=== PATIENT | female | born 1975 | race Caucasian/White ===

== ENCOUNTER 2019-01-09 22:17 | Emergency (ER) | payer BC ==
[2019-01-09 22:21] VITALS: BP 123/61; PULSE 67; TEMP 97.4; BMI 31.6
--- NOTE | 2019-01-09 23:01 | PDOC ---
History of Present Illness - General Chief Complaint: Shortness of Breath Stated Complaint: S.O.B/ASTHMA - History of Present Illness Initial Comments: The patient is a 43F w/ a history of asthma, hypothyroidism, and idiopathic intracranial hypertension who presents for evaluation of 1 month of cough, congestion, wheezing, generalized myalgias, and malaise. She has been using her inhaler at home with minimal symptom relief. She also reports intermittent associated nausea and lightheadedness. Denies fevers/chills, HORTON, vision changes, chest pain, abdominal pain, V/C/D, dysuria, hematuria, or changes in strength or sensation 01/09/19 23:13 Past History - Past Medical History Allergies/Adverse Reactions: Allergies Allergy/AdvReac Type Severity Reaction Status Date / Time No Known Drug Allergies Allergy Verified 01/09/19 22:21 Home Medications: Ambulatory Orders Albuterol Sulfate Inhaler - [Ventolin HFA Inhaler -] 2 inh IH Q4H PRN #1 inh 07/13 Levothyroxine [Synthroid -] 150 mcg PO DAILY 04/07/13 Fluticasone/Salmeterol [Advair Hfa 115-21 Mcg Inhaler] 1 inh PO BID #1 inhaler 04/27/13 acetaZOLAMIDE [Diamox Sequels -] 500 mg PO BID 08/19/13 Nitrofurantoin Macrocrystal [Macrodantin -] 100 mg PO BID #14 capsule 09/06/16 Prednisone [Deltasone] 40 mg PO DAILY 4 Days #8 tablet 01/10/19 Asthma: Yes COPD: No Thyroid Disease: Yes (hypothyroid) - Suicide/Smoking/Psychosocial Hx Smoking Status: No Smoking History: Never smoked Have you smoked in the past 12 months: No Number of Cigarettes Smoked Daily: 0 Hx Alcohol Use: No Drug/Substance Use Hx: No Substance Use Type: None Review of Systems - Review of Systems Able to Perform ROS?: Yes Comments:: GENERAL/CONSTITUTIONAL: No fever or chills. No weakness HEAD, EYES, EARS, NOSE AND THROAT: No change in vision. No ear pain or discharge. No sore throat CARDIOVASCULAR: No chest pain or shortness of breath RESPIRATORY: Denies hemoptysis GASTROINTESTINAL: No vomiting, diarrhea or constipation GENITOURINARY: No dysuria, frequency, or change in urination MUSCULOSKELETAL: No joint or muscle swelling or pain. No neck or back pain SKIN: No rash NEUROLOGIC: No headache, vertigo, loss of consciousness, or change in strength/ sensation ENDOCRINE: No increased thirst. No abnormal weight change HEMATOLOGIC/LYMPHATIC: No anemia, easy bleeding, or history of blood clots ALLERGIC/IMMUNOLOGIC: No hives or skin allergy 01/09/19 23:01 Is the patient limited [place] proficient: No *Physical Exam - Vital Signs Last Vital Signs Temp Pulse Resp BP Pulse Ox 97.4 F L 67 20 123/61 100 01/09/19 22:19 01/09/19 22:19 01/09/19 22:19 01/09/19 22:19 01/09/19 22:19 - Physical Exam Comments: GENERAL: Awake, alert, and fully oriented, in no acute distress HEAD: No signs of trauma, normocephalic, atraumatic EYES: PERRLA, EOMI, sclera anicteric, conjunctiva clear ENT: Hearing grossly normal, nares patent, oropharynx clear without exudates. Moist mucosa LUNGS: No distress, speaks full sentences, mild b/l wheezes L>R HEART: Regular rate and rhythm, normal S1 and S2, no murmurs appreciated, peripheral pulses normal and equal bilaterally ABDOMEN: Soft, nontender, normoactive bowel sounds. No guarding, no rebound. No masses EXTREMITIES : Normal inspection, Normal range of motion, no edema. No clubbing or cyanosis NEUROLOGICAL: Cranial nerves II through XII grossly intact. Normal speech, normal gait, no focal sensorimotor deficits SKIN: Warm, Dry 01/09/19 23:01 Moderate Sedation - Procedure Monitoring Vital Signs: Procedure Monitoring Vital Signs Temperature 97.4 F L 01/09/19 22:19 Pulse Rate 67 01/09/19 22:19 Respiratory Rate 20 01/09/19 22:19 Blood Pressure 123/61 01/09/19 22:19 O2 Sat by Pulse Oximetry (%) 100 01/09/19 22:19 Medical Decision Making - Medical Decision Making The patient is a 43F w/ a history of asthma, idiopathic intracranial hypertension, and hypothyroidism who presents for evaluation of 1m of URI symptoms/wheezing. ED Course Rapid flu CXR Duo-nebs x3 Prednisone 60mg PO once 01/09/19 23:18 Flu negative 01/09/19 23:48 U preg neg CXR pending 01/10/19 00:33 CXR w/o evidence of PNA Rx for Prednisone 40mg PO daily for 4 days Plan for D/C w/ PCP f/u Discharge instructions and return precautions given Patient in agreement and verbalized understanding Dispo: home 01/10/19 01:24 *DC/Admit/Observation/Transfer Diagnosis at time of Disposition: Asthma exacerbation Qualifiers: Asthma severity: mild Asthma persistence: unspecified Qualified Code(s): J45.901 - Unspecified asthma with (acute) exacerbation - Discharge Dispostion Disposition: HOME Condition at time of disposition: Improved Decision to Admit order: No - Prescriptions Prescriptions: Prednisone [Deltasone] 40 mg PO DAILY 4 Days #8 tablet - Referrals - Patient Instructions Printed Discharge Instructions: DI for Asthma -- Adult Additional Instructions: You were seen in the Emergency Department for evaluation of an asthma exacerbation. You were given duo-nebs and steroids. A prescription for Prednisone 40mg daily for 4 days was sent to the pharmacy that you specified. Follow up with your primary care provider within the next 3-5 days. Return to the Emergency Department if you develop fevers, trouble breathing, worsening symptoms, or any new/concerning symptoms. - Post Discharge Activity
[2019-01-09] MEDS ORDERED: ALBUTEROL SO4 2.5/IPRATROPIUM 0.5 INH SOL 3 ML VIAL.NEB. NEB ONE (23:22)
[2019-01-09] MEDS: ALBUTEROL SO4 2.5/IPRATROPIUM 0.5 INH SOL 3 ML VIAL.NEB. NEB SCH ×2 (23:26→23:43)
--- NOTE | 2019-01-09 23:50 | PDOC ---
Attending Attestation - Resident Resident Name: KingMicheal reinoso - ED Attending Attestation I have performed the following: I have examined & evaluated the patient, The case was reviewed & discussed with the resident, I agree w/resident's findings & plan, Exceptions are as noted - HPI HPI: 01/10/19 00:52 43y F hx of asthma presents with cough for th epast month as well as - Physicial Exam PE: 01/10/19 00:52 General: well appearing in no distress Pulm: scatered wheezing b/l, no respiratory distress, speaking complete sentences, no accessory muscle use card: no mrg - Medical Decision Making 01/09/19 23:49 43y F hx of asthma, IIH, hypothyodisim presents with 1month of myalgias, wheezing, chest pain with coughing not improved with her inhaler use denies fever/chills, endorses nauesa w/o vomiting, diarrhea
[2019-01-09] MEDS ORDERED: predniSONE 20 MG TABLET (UD) PO ONE (23:57)
[2019-01-10] MEDS ORDERED: predniSONE 20 MG TABLET (UD) ONE (00:02)
[2019-01-10] MEDS: ALBUTEROL SO4 2.5/IPRATROPIUM 0.5 INH SOL 3 ML VIAL.NEB. NEB SCH (00:07)
== END 2019-01-10 01:37 | disposition home or self-care (01) ==
LOC: JER 22:17
PROC: 3E0F7GC Introduction of Other Therapeutic Substance into Respiratory Tract, Via Natural or Artificial Opening (ICD-10-PCS; principal; 2019-01-09)
DX: J45.901 Unspecified asthma with (acute) exacerbation (principal); E03.9 Hypothyroidism, unspecified; G93.2 Benign intracranial hypertension
CPT/HCPCS: 71046-TC-FY; 84703; 87804; 99283-25

== ENCOUNTER 2021-04-01 04:29 | Observation (INO) | payer BC ==
[2021-04-01] MEDS ORDERED: ACETAMINOPHEN 500 MG TABLET (FP) PO ONE (05:15)
[2021-04-01] MEDS ORDERED: ACETAMINOPHEN 325 MG TABLET (FP) ONE (05:17)
[2021-04-01] MEDS ORDERED: ACETAMINOPHEN 500 MG TABLET (FP) ONE (05:19)
[2021-04-01] MEDS ORDERED: diazePAM 5 MG TABLET PO ONE (05:21)
[2021-04-01] MEDS ORDERED: KETOROLAC TROMETHAMINE 60 MG/2 ML VIAL IM ONE (05:21)
[2021-04-01] MEDS ORDERED: LIDOCAINE 5% TOPICAL PATCH TP ONE ×2 (05:21→12:55)
[2021-04-01] MEDS ORDERED: diazePAM 5 MG TABLET ONE (05:25)
[2021-04-01] MEDS ORDERED: KETOROLAC TROMETHAMINE 60 MG/2 ML VIAL ONE (05:25)
[2021-04-01] MEDS ORDERED: LIDOCAINE 5% TOPICAL PATCH ONE (05:26)
[2021-04-01] MEDS ORDERED: GABAPENTIN 100 MG CAPSULE PO ONE (06:37)
[2021-04-01] MEDS ORDERED: GABAPENTIN 100 MG CAPSULE ONE (06:39)
[2021-04-01] MEDS ORDERED: morphine CARPU-JECT 4 MG/1 ML DISP.SYRIN IVPUSH ONE ×2 (08:58→12:55)
[2021-04-01] MEDS ORDERED: MORPHINE SULFATE 2 MG/ML VIAL ONE ×2 (09:03→12:50)
[2021-04-01 10:23] LABS: BASO % 0.5 % (0-2.0); EOS % 1.3 % (0-4.5); HEMATOCRIT 36.4 % (32.4-45.2); HEMOGLOBIN 12.2 GM/dL (10.7-15.3); LYMPH % 37.7 % (8-40); MCH 27.3 pg (25.7-33.7); MCHC 33.5 g/dl (32.0-36.0); MEAN CELL VOLUME 81.6 fl (80-96); MEAN PLT VOLUME 9.4 fl (7.5-11.1); NEUT % 54.5 % (42.8-82.8); PLATELET COUNT 219 K/MM3 (134-434); RBC 4.45 M/mm3 (3.60-5.2); WHITE BLOOD COUNT 7.5 K/mm3 (4.0-10.0)
[2021-04-01 10:31] LABS: PROTHROMBIN TIME (PATIENT) 12.3 SEC (9.7-13.0)
[2021-04-01 10:46] LABS: ALBUMIN 3.5 g/dl (3.4-5.0); BLOOD UREA NITROGEN 15.9 mg/dL (7-18); CALCIUM 8.5 mg/dL (8.5-10.1)
[2021-04-01 10:49] LABS: CREATININE 0.8 mg/dL (0.55-1.3)
[2021-04-01 10:50] LABS: BILIRUBIN,TOTAL 0.7 mg/dL (0.2-1); TOT PROT 7.5 g/dl (6.4-8.2)
[2021-04-01 18:15] VITALS: BMI 35.6
[2021-04-01] MEDS ORDERED: morphine SULFATE 4 MG/ML VIAL IVPUSH ONE (20:18)
[2021-04-01] MEDS ORDERED: LIDOCAINE PATCH REMOVAL MC SCH ×2 (22:00)
[2021-04-02] MEDS ORDERED: morphine SULFATE 4 MG/ML VIAL IVPUSH PRN (02:26)
[2021-04-02] MEDS ORDERED: oxyCODONE HCL 5 MG TABLET PO PRN ×2 (02:26→14:08)
[2021-04-02] MEDS: LEVOTHYROXINE NA 125 MCG TABLET (FP) PO SCH (05:59)
[2021-04-02] MEDS ORDERED: GABAPENTIN 100 MG CAPSULE PO SCH (07:30)
[2021-04-02] MEDS: ENOXAPARIN NA (PORCINE) 40 MG/0.4 ML DISP.SYRIN SQ SCH (09:16)
[2021-04-02] MEDS ORDERED: ACETAMINOPHEN 325 MG TABLET (FP) PO PRN (10:15)
[2021-04-02] MEDS: LIDOCAINE 5% TOPICAL PATCH TP SCH (10:43)
[2021-04-02] MEDS: oxyCODONE HCL 5 MG TABLET PO PRN ×2 (10:43→23:09)
[2021-04-02] MEDS ORDERED: morphine SULFATE 4 MG/ML VIAL IVPUSH ONE (13:08)
[2021-04-02] MEDS ORDERED: SODIUM CHLORIDE 0.9% 500 ML INFUS.BAG IV ONE (13:18)
[2021-04-02] MEDS ORDERED: ALBUTEROL SO4 HFA INHALER IH PRN (14:56)
[2021-04-02] MEDS: ACETAMINOPHEN 325 MG TABLET (FP) PO PRN ×2 (17:41→23:08)
[2021-04-02] MEDS: LIDOCAINE PATCH REMOVAL MC SCH (23:15)
[2021-04-03] MEDS: LEVOTHYROXINE NA 125 MCG TABLET (FP) PO SCH (06:18)
[2021-04-03 08:02] LABS: BASO % 0.5 % (0-2.0); EOS % 2.1 % (0-4.5); HEMOGLOBIN 12.3 GM/dL (10.7-15.3); LYMPH % 47.5 % (8-40); MCH 27.4 pg (25.7-33.7); MCHC 33.2 g/dl (32.0-36.0); MEAN CELL VOLUME 82.6 fl (80-96); MEAN PLT VOLUME 9.8 fl (7.5-11.1); MONO % 9.1 % (3.8-10.2); NEUT % 40.8 % (42.8-82.8); PLATELET COUNT 213 K/MM3 (134-434); RBC 4.48 M/mm3 (3.60-5.2); RDW 15.2 % (11.6-15.6); WHITE BLOOD COUNT 5.3 K/mm3 (4.0-10.0)
[2021-04-03 08:37] LABS: ALBUMIN 2.9 g/dl (3.4-5.0); CALCIUM 7.9 mg/dL (8.5-10.1)
[2021-04-03 08:38] LABS: BLOOD UREA NITROGEN 14.5 mg/dL (7-18); MAGNESIUM 2.1 mg/dL (1.8-2.4)
[2021-04-03 08:41] LABS: CREATININE 0.8 mg/dL (0.55-1.3)
[2021-04-03 08:42] LABS: BILIRUBIN,TOTAL 0.6 mg/dL (0.2-1); TOT PROT 6.9 g/dl (6.4-8.2)
[2021-04-03] MEDS: ACETAMINOPHEN 325 MG TABLET (FP) PO PRN ×2 (09:29→16:02)
[2021-04-03] MEDS: oxyCODONE HCL 5 MG TABLET PO PRN ×3 (09:30→23:59)
[2021-04-03] MEDS: LIDOCAINE 5% TOPICAL PATCH TP SCH (10:58)
[2021-04-03] MEDS: ENOXAPARIN NA (PORCINE) 40 MG/0.4 ML DISP.SYRIN SQ SCH (11:45)
[2021-04-03] MEDS ORDERED: POLYETHYLENE GLYCOL 3350 119 GM BTL PO ONE (14:00)
[2021-04-03] MEDS: LIDOCAINE PATCH REMOVAL MC SCH (21:14)
[2021-04-04] MEDS: LEVOTHYROXINE NA 125 MCG TABLET (FP) PO SCH (06:04)
[2021-04-04 07:56] LABS: BASO % 0.4 % (0-2.0); HEMATOCRIT 37.6 % (32.4-45.2); HEMOGLOBIN 12.3 GM/dL (10.7-15.3); LYMPH % 43.5 % (8-40); MCH 27.3 pg (25.7-33.7); MCHC 32.8 g/dl (32.0-36.0); MEAN CELL VOLUME 83.1 fl (80-96); MEAN PLT VOLUME 10.3 fl (7.5-11.1); MONO % 7.1 % (3.8-10.2); PLATELET COUNT 237 K/MM3 (134-434); RBC 4.53 M/mm3 (3.60-5.2); RDW 14.9 % (11.6-15.6); WHITE BLOOD COUNT 6.9 K/mm3 (4.0-10.0)
[2021-04-04 08:37] LABS: CALCIUM 8.4 mg/dL (8.5-10.1)
[2021-04-04 08:38] LABS: ALBUMIN 3.5 g/dl (3.4-5.0); BILIRUBIN,TOTAL 0.4 mg/dL (0.2-1); MAGNESIUM 2.1 mg/dL (1.8-2.4)
[2021-04-04 08:39] LABS: TOT PROT 7.5 g/dl (6.4-8.2)
[2021-04-04 08:40] LABS: CREATININE 0.8 mg/dL (0.55-1.3)
[2021-04-04 08:41] LABS: PHOSPHOROUS 3.7 mg/dL (2.5-4.9)
[2021-04-04] MEDS: LIDOCAINE 5% TOPICAL PATCH TP SCH (09:02)
[2021-04-04] MEDS: oxyCODONE HCL 5 MG TABLET PO PRN (09:03)
[2021-04-04] MEDS: ENOXAPARIN NA (PORCINE) 40 MG/0.4 ML DISP.SYRIN SQ SCH (09:03)
[2021-04-04] MEDS ORDERED: oxyCODONE HCL 5 MG TABLET PO PRN ×2 (18:54)
[2021-04-04] MEDS: CYCLOBENZAPRINE HCL 10 MG TABLET (FP) PO SCH (21:37)
[2021-04-04] MEDS: KETOROLAC TROMETHAMINE 30 MG/1 ML VIAL IM PRN (21:37)
[2021-04-04] MEDS: LIDOCAINE PATCH REMOVAL MC SCH (22:31)
[2021-04-05] MEDS: LEVOTHYROXINE NA 125 MCG TABLET (FP) PO SCH (06:03)
[2021-04-05] MEDS: CYCLOBENZAPRINE HCL 10 MG TABLET (FP) PO SCH ×3 (06:03→21:01)
[2021-04-05 07:30] LABS: BASO % 0.7 % (0-2.0); EOS % 1.8 % (0-4.5); HEMATOCRIT 35.9 % (32.4-45.2); LYMPH % 38.4 % (8-40); MCH 27.6 pg (25.7-33.7); MCHC 33.3 g/dl (32.0-36.0); MEAN CELL VOLUME 82.9 fl (80-96); MEAN PLT VOLUME 9.7 fl (7.5-11.1); MONO % 8.8 % (3.8-10.2); NEUT % 50.3 % (42.8-82.8); PLATELET COUNT 217 K/MM3 (134-434); RBC 4.33 M/mm3 (3.60-5.2); RDW 15.1 % (11.6-15.6); WHITE BLOOD COUNT 6.2 K/mm3 (4.0-10.0)
[2021-04-05 07:48] LABS: ALBUMIN 3.2 g/dl (3.4-5.0); CALCIUM 8.6 mg/dL (8.5-10.1)
[2021-04-05 07:49] LABS: BLOOD UREA NITROGEN 17.6 mg/dL (7-18)
[2021-04-05 07:52] LABS: CREATININE 0.8 mg/dL (0.55-1.3); PHOSPHOROUS 3.6 mg/dL (2.5-4.9)
[2021-04-05 07:53] LABS: BILIRUBIN,TOTAL 0.5 mg/dL (0.2-1); TOT PROT 7.1 g/dl (6.4-8.2)
[2021-04-05] MEDS: LIDOCAINE 5% TOPICAL PATCH TP SCH (09:19)
[2021-04-05] MEDS: ENOXAPARIN NA (PORCINE) 40 MG/0.4 ML DISP.SYRIN SQ SCH (09:19)
[2021-04-05] MEDS ORDERED: THIAMINE HCL 200 MG/2 ML VIAL IVPB ONE ×2 (18:44→18:45)
[2021-04-05] MEDS: LIDOCAINE PATCH REMOVAL MC SCH (21:01)
[2021-04-06] MEDS: KETOROLAC TROMETHAMINE 30 MG/1 ML VIAL IM PRN (00:15)
[2021-04-06] MEDS: ACETAMINOPHEN 325 MG TABLET (FP) PO PRN (00:54)
[2021-04-06] MEDS: LEVOTHYROXINE NA 125 MCG TABLET (FP) PO SCH (06:31)
[2021-04-06] MEDS: CYCLOBENZAPRINE HCL 10 MG TABLET (FP) PO SCH (06:31)
[2021-04-06] MEDS: LIDOCAINE 5% TOPICAL PATCH TP SCH (09:12)
[2021-04-06] MEDS: ENOXAPARIN NA (PORCINE) 40 MG/0.4 ML DISP.SYRIN SQ SCH (09:12)
[2021-04-06 13:24] VITALS: TEMP 98
[2021-04-06 14:00] VITALS: BP 125/73; PULSE 79
== END 2021-04-06 14:47 | disposition short-term general hospital (02) ==
LOC: JER 04:29 → JERBED 12:42 → J7W 16:44
PROVIDERS: ADMIT Internal Medicine; ATTEND Internal Medicine
PROC: 3E023GC Introduction of Other Therapeutic Substance into Muscle, Percutaneous Approach (ICD-10-PCS; principal; 2021-04-01)
PROC: 3E0233Z Introduction of Anti-inflammatory into Muscle, Percutaneous Approach (ICD-10-PCS; 2021-04-01)
PROC: 3E033NZ Introduction of Analgesics, Hypnotics, Sedatives into Peripheral Vein, Percutaneous Approach (ICD-10-PCS; 2021-04-01)
DX: M51.9 Unspecified thoracic, thoracolumbar and lumbosacral intervertebral disc disorder (principal); M54.16 Radiculopathy, lumbar region; R20.8 Other disturbances of skin sensation; J45.909 Unspecified asthma, uncomplicated; E03.9 Hypothyroidism, unspecified; E66.8 Other obesity; Z68.35 Body mass index [BMI] 35.0-35.9, adult; G89.29 Other chronic pain; R20.2 Paresthesia of skin; R20.0 Anesthesia of skin; M79.605 Pain in left leg; M79.652 Pain in left thigh; M51.26 Other intervertebral disc displacement, lumbar region; Z87.898 Personal history of other specified conditions; Z29.9 Encounter for prophylactic measures, unspecified
CPT/HCPCS: 36415; 72131-TC; 72148-TC; 80053; 80307; 83735; 84100; 84703; 85025; 85610; 85730; 86850; 86900; 86901; 93005; 93010; 97116-GP; 97161-GP; 99285-25; C9803; G0378; U0003; U0005

== ENCOUNTER 2021-11-22 19:58 | Emergency (ER) | payer BC ==
[2021-11-22 20:18] VITALS: BP 111/70; PULSE 83; TEMP 98; BMI 35.7
[2021-11-22] MEDS ORDERED: ALBUTEROL SO4 HFA INHALER IH ONE ×2 (22:08→22:11)
== END 2021-11-22 22:22 | disposition home or self-care (01) ==
LOC: JER 19:58
PROC: 3E0F7GC Introduction of Other Therapeutic Substance into Respiratory Tract, Via Natural or Artificial Opening (ICD-10-PCS; principal; 2021-11-22)
DX: R05.9 Cough, unspecified (principal)
CPT/HCPCS: 71046-TC-FY; 87804; 87807; 99284-25; C9803; U0003; U0005

== ENCOUNTER 2023-02-13 15:00 | Emergency (ER) | payer BC ==
[2023-02-13 15:27] VITALS: BP 121/61; PULSE 68; RESP 20; TEMP 98.2; BMI 33.3
[2023-02-13 17:05] LABS: BASO % 0.7 % (0-2.0); EOS % 0.4 % (0-4.5); HEMATOCRIT 40.8 % (32.4-45.2); HEMOGLOBIN 13.3 GM/dL (10.7-15.3); LYMPH % 44.7 % (8-40); MCH 26.5 pg (25.7-33.7); MCHC 32.6 g/dl (32.0-36.0); MEAN CELL VOLUME 81.4 fl (80-96); MEAN PLT VOLUME 9.5 fl (7.5-11.1); MONO % 7.9 % (3.8-10.2); NEUT % 46.3 % (42.8-82.8); PLATELET COUNT 238 10^3/uL (134-434); RBC 5.01 M/mm3 (3.60-5.2); RDW 13.9 % (11.6-15.6); WHITE BLOOD COUNT 8.3 K/mm3 (4.0-10.0)
[2023-02-13 17:20] LABS: ACTIVATED PTT 27.1 SECONDS (25.2-36.5); INR 0.97 (0.83-1.09); PROTHROMBIN TIME (PATIENT) 11.3 SEC (9.7-13.0)
[2023-02-13 17:33] LABS: CALCIUM 9.7 mg/dL (8.5-10.1)
[2023-02-13 17:34] LABS: ALBUMIN 3.9 g/dl (3.4-5.0); BLOOD UREA NITROGEN 14.1 mg/dL (7-18); MAGNESIUM 2.1 mg/dL (1.8-2.4)
[2023-02-13 17:37] LABS: CREATININE 0.7 mg/dL (0.55-1.3)
[2023-02-13 17:38] LABS: BILIRUBIN,TOTAL 0.7 mg/dL (0.2-1); TOT PROT 8.3 g/dl (6.4-8.2)
[2023-02-13] MEDS ORDERED: DEXAMETHASONE SOD PHOSPHATE 10 MG/1 ML VIAL IM ONE (18:08)
[2023-02-13] MEDS ORDERED: CYCLOBENZAPRINE HCL 10 MG TABLET (FP) PO ONE (18:11)
[2023-02-13] MEDS ORDERED: ALBUTEROL SO4 2.5/IPRATROPIUM 0.5 INH SOL 3 ML VIAL.NEB. NEB ONE (18:36)
[2023-02-13] MEDS ORDERED: CYCLOBENZAPRINE HCL 10 MG TABLET (FP) ONE (18:37)
[2023-02-13] MEDS ORDERED: DEXAMETHASONE SOD PHOSPHATE 10 MG/1 ML VIAL ONE (18:37)
[2023-02-13] MEDS: ALBUTEROL SO4 2.5/IPRATROPIUM 0.5 INH SOL 3 ML VIAL.NEB. NEB SCH (18:43)
== END 2023-02-13 19:23 | disposition home or self-care (01) ==
LOC: JERFT 15:00
PROC: 3E023GC Introduction of Other Therapeutic Substance into Muscle, Percutaneous Approach (ICD-10-PCS; principal; 2023-02-13)
PROC: 3E0F7GC Introduction of Other Therapeutic Substance into Respiratory Tract, Via Natural or Artificial Opening (ICD-10-PCS; 2023-02-13)
DX: R20.2 Paresthesia of skin (principal); J45.20 Mild intermittent asthma, uncomplicated
CPT/HCPCS: 0241U-QW; 36415; 80053; 83735; 84443; 84484; 85025; 85610; 85730; 93005; 93010; 99284-25; J1100